=== PATIENT | female | born 1945 | race Caucasian/White ===

== ENCOUNTER 2016-06-08 06:58 | Day surgery (SDC) | payer OTHER ==
[2016-06-08] VITALS (7 sets, daily range): BP systolic 89–126; BP diastolic 54–76; PULSE 71–78; TEMP 97–97.1
[~2016-06-08] VITALS: Ht 160.1 cm; Wt 83.6 kg
[~2016-06-08 06:58] MED LIST: DIOVAN/HCT 12.51 TAB PO; MACROBID 1100 MG/CAP; PYRIDIUM200 M1 PO; ULTRAM 50MG TAB50 MG PO
[2016-06-08] MEDS ORDERED: MOTRIN 200200 MG/TAB PO (07:33)
[2016-06-08 08:37] LABS: HEMATOCRIT 38.4 % (37.0-47.0); MEAN CELL VOLUME 84 fl (80.0-100.0); MEAN CORPUSCULAR HEMOGLOBIN 29 pg (27.0-31.0); MEAN CORPUSCULAR HGB CONC 34 g/dl (33.0-37.0); PLATELET COUNT 220 K/mm3 (130-400); RED BLOOD COUNT 4.55 M/mm3 (4.10-5.30); REDCELL DISTRIBUTION WIDTH-CV 11.9 % (11.5-14.5); WHITE BLOOD COUNT 9.2 K/mm3 (4.8-10.8)
[2016-06-08 08:46] LABS: CALCIUM 9.7 mg/dL (8.4-10.2); POTASSIUM 3.6 mmol/L (3.4-5.0)
[2016-06-08 08:47] LABS: INR 1.1 (0.8-3.0); PROTHROMBIN TIME 12.2 SECONDS (9.7-12.8)
[2016-06-08 08:54] LABS: CREATININE, serum 0.76 mg/dL (0.52-1.25)
[2016-06-08] MEDS ORDERED: NEXIUM 40MG40 MG PO (11:39)
== END 2016-06-08 12:17 | disposition home or self-care (01) ==
LOC: COL.CAR 06:58
PROVIDERS: Internal Medicine Cardiovascular Disease
DX: R07.2 Precordial pain (principal); I10 Essential (primary) hypertension; Z79.899 Other long term (current) drug therapy
CPT/HCPCS: C1769; C1887; C1894; J1644; J2250; J3010; Q9967